=== PATIENT | female | born 1980 | race Caucasian/White ===

== ENCOUNTER → 2018-05-01 | Outpatient (CLI) | payer OTHER ==
--- NOTE | 2018-05-01 11:29 | RAD ---
OB <14 WKS W/TV History: Z 32.00, possible , bleeding Comparison: None. Findings: Multiple transabdominal sonographic images of pelvis are submitted. Uterus measured 10 x 5.7 x 6.4 cm. Endometrium is thickened about 2.4 cm. Left ovary measured 1.5 x 2.1 x 2 cm with normal low resistance vascularity. Right ovary measured 2.1 x 1.5 x 2.6 cm, normal low resistance vascularity. Transvaginal ultrasound: Multiple transvaginal sonographic images of the pelvis are submitted. Uterus measured 11.2 x 5.5 x 7.5 cm. Endometrium measures about 1.6 cm. There are some scattered small cystic foci of the endometrium, mild scattered vascularity of the endometrium on color Doppler imaging. No discrete intrauterine gestational sac is identified at this time. Right ovary measured 2 x 2.2 x 2.2 cm with normal low resistance vascularity, some small follicles present. Left ovary measured 2 x 1.4 x 2.8 cm with normal low resistance vascularity, a few small follicles. No significant free fluid is demonstrated. Impression: 1. Endometrium is somewhat thickened, discrete intrauterine gestational sac not demonstrated at this time, scattered small nonspecific cystic foci of the endometrium. Short-term interval follow-up and correlation with quantitative beta hCG values may be beneficial. There is no significant free fluid. There is no abnormality of either ovary. Electronically signed by: Pepe Bowen MD (05/01/2018 11:24 AM) [facility]
== END | disposition home or self-care (01) ==
LOC: PMG 09:56
PROVIDERS: ATTEND Registered Nurse
DX: Z33.2 Encounter for elective termination of pregnancy (principal)
CPT/HCPCS: 76801; 76817